=== PATIENT | male | born 1970 | race Caucasian/White ===

== ENCOUNTER 2018-06-03 14:55 | Outpatient (CLI) | payer OTHER ==
--- NOTE | 2018-06-03 17:47 | MRI ---
MRI OF LUMBAR SPINE NONCONTRAST: 06/03/18 CLINICAL INDICATION: Low back pain. Reference made to 04/29/18 lumbar spine radiograph series. FINDINGS: There is diffuse low T1 marrow signal throughout the imaged low thoracic, lumbar and sacral spine, no nspecific. There is no acute compression fracture or subluxation. The conus medullaris is normal in m orphology, terminating at the L1 level. There is multilevel mild bilateral degenerative facet hypertr ophy. There are mild posterior disc bulges at each lumbar spine level which produce mild effacement of the ventral thecal sac, although no high grade central or significant neural foraminal stenosis. Disc spa ce heights are relatively well preserved within the lumbar spine. 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 Mild multilevel degenerative facet hypertrophy. There is diffuse production of T1 marrow signal throughout the imaged osseous structures which is a n onspecific finding. This could reflect benign red marrow reconversion, although the possibility of a marrow proliferative process cannot be exclude. Correlate with clinical assessment and laboratory ciara ues. As necessary, imaging followup may also be obtained. POS: PHANI
== END 2018-06-03 14:56 | disposition home or self-care (01) ==
LOC: SCSMRI 14:55
PROVIDERS: ATTEND Family Medicine
DX: M51.16 Intervertebral disc disorders with radiculopathy, lumbar region (principal); R93.7 Abnormal findings on diagnostic imaging of other parts of musculoskeletal system
CPT/HCPCS: 72148

== ENCOUNTER 2025-04-05 11:17 | Outpatient (CLI) | payer OTHER ==
[2025-04-05 13:28] LABS: #Basophils Less than 0.03 10x3/uL (0.0-0.2); #Eosinophils 0.08 10x3/uL (0.0-0.7); #Monocytes 0.72 10x3/uL (0.11-0.59); #Neutrophils 3.77 10x3/uL (1.40-6.50); %Basophils 0.3 % (0.0-1.0); %Eosinophils 1.2 % (0.0-10.0); %Lymphocytes 31.1 % (21.0-51.0); %Monocytes 10.7 % (0.0-10.0); %Neutrophils 55.7 % (42.0-75.0); Hematocrit 49.2 % (42.0-52.0); Hemoglobin 16.1 g/dL (14.0-18.0); Mean Corpuscular Hemoglobin 32.4 pg (27.0-31.0); Mean Corpuscular Volume 99.0 fL (78.0-98.0); Platelet Count 145 10x3/uL (130-400); Red Blood Cell (RBC) Count 4.97 mill/uL (4.70-6.10); White Blood Cell (WBC) Count 6.76 10x3/uL (4.8-10.8)
[2025-04-05 13:47] LABS: INR-International Normal Ratio 1.0; Prothrombin Time 13.1 sec (12.0-14.7)
[2025-04-05 13:49] LABS: Anion Gap 12 mmol/L (10-20); BUN (Urea Nitrogen) 15 mg/dL (8.4-25.7); Calc. Creatinine Clearance 0 mL/min (70-130); Calcium 9.4 mg/dL (7.8-10.44); Carbon Dioxide 28 mmol/L (22-29); Chloride 102 mmol/L (98-107); Glucose 83 mg/dL (70-105); Potassium 3.8 mmol/L (3.5-5.1); Sodium 138 mmol/L (136-145)
[2025-04-05 15:29] LABS: Bacteria/HPF None Seen HPF (None Seen); Glucose, Urine (Dipstick) Normal (Negative); Leukocyte Negative Leu/uL (Negative); Protein, Urine (Dipstick) Negative (Neg-Trace); RBC/HPF 0-3 HPF (0-3); Specific Gravity, Urine 1.011 (1.002-1.036); WBC/HPF None Seen HPF (0-3)
== END 2025-04-05 11:18 | disposition home or self-care (01) ==
LOC: LABBT 11:17
PROVIDERS: ATTEND Orthopaedic Surgery
DX: Z01.818 Encounter for other preprocedural examination (principal); M87.852 Other osteonecrosis, left femur; M87.862 Other osteonecrosis, left tibia
CPT/HCPCS: 71046; 80048; 81001; 85025; 85610; 87081; 93005; 93010

== ENCOUNTER 2025-04-05 12:17 | Outpatient (CLI) | payer OTHER | END 2025-04-05 12:18 | disposition home or self-care (01) | LOC: CT 12:17 | PROVIDERS: ATTEND Orthopaedic Surgery | DX: M87.852 Other osteonecrosis, left femur (principal); M87.862 Other osteonecrosis, left tibia; Z01.818 Encounter for other preprocedural examination | CPT/HCPCS: 71046; 80048; 81001; 85025; 85610; 87081; 93005; 93010 ==

== ENCOUNTER 2025-04-17 05:25 | Observation (INO) | payer OTHER ==
[2025-04-14 11:46] VITALS: BMI 28.0
[2025-04-17] MEDS ORDERED: Vancomycin HCl 1.5 GM VIAL ONE (05:59)
[2025-04-17] MEDS ORDERED: Tranexamic Acid 1,000 MG/10 ML VIAL ONE ×2 (05:59→08:51)
[2025-04-17] MEDS ORDERED: Ropivacaine 0.5% HCl/PF (150 MG/30 ML VIAL) ONE (06:36)
[2025-04-17] MEDS ORDERED: CEFAZOLIN 2 GM VIAL ONE (06:57)
[2025-04-17] MEDS ORDERED: PROPOFOL 20 ML ONE (07:00)
[2025-04-17] MEDS ORDERED: Lidocaine 1% PF 5 ML VIAL ONE (07:00)
[2025-04-17] MEDS ORDERED: PHENYLEPHRINE-NS 100 MCG/ML 10 ML SYRINGE ONE (07:22)
[2025-04-17] MEDS ORDERED: Ondansetron PF 4 MG/2 ML Vial IVP PRN ×2 (07:30→08:41)
[2025-04-17] MEDS ORDERED: Ropivacaine 0.2% 550 ML 550 ML NERVE BLCK SCH (07:30)
[2025-04-17] MEDS ORDERED: fentaNYL PF 100 MCG/2 ML SYRINGE ONE ×4 (07:41→09:28)
[2025-04-17] MEDS ORDERED: Ketorolac Tromethamine 30 MG (1 mL) VIAL ONE (08:36)
[2025-04-17] MEDS ORDERED: Ondansetron PF 4 MG/2 ML Vial ONE (08:38)
[2025-04-17] MEDS ORDERED: diphenhydrAMINE 25 MG CAP PO PRN (08:41)
[2025-04-17] MEDS ORDERED: Acetaminophen 325 MG TAB PO PRN (08:41)
[2025-04-17] MEDS ORDERED: HYDROmorphone 2 MG/ML VIAL ONE (09:12)
[2025-04-17] MEDS ORDERED: HYDROmorphone 0.5 MG/0.5 ML SYRINGE ONE (09:51)
[2025-04-17] MEDS ORDERED: HYDROmorphone 0.5 MG/0.5 ML SYR SLOW IVP PRN (10:15)
[2025-04-17] MEDS: HYDROcodone/Acetaminophen 10/325 mg Tablet PO SCH (11:19)
[2025-04-17] MEDS: HYDROcodone/Acetaminophen 10/325 mg Tablet PO PRN (11:20)
[2025-04-17] MEDS: Aspirin 81 mg Enteric Coated Tablet PO SCH (12:41)
[2025-04-17] MEDS: Ketorolac Tromethamine 30 MG (1 mL) VIAL IVP SCH (12:43)
[2025-04-17 16:17] VITALS: BMI 28.0
[2025-04-17] MEDS: VANCOMYCIN 2 GRAM/400 ML BAG 2 GM in Premix 1 BAG IVPB SCH (18:25)
[2025-04-17] MEDS: Rosuvastatin 20 MG TAB PO SCH (20:06)
[2025-04-18 07:00] LABS: Hematocrit 39.5 % (42.0-52.0); Hemoglobin 13.0 g/dL (14.0-18.0); Mean Corpuscular Hemoglobin 32.5 pg (27.0-31.0); Mean Corpuscular Volume 98.8 fL (78.0-98.0); Platelet Count 138 10x3/uL (130-400); Red Blood Cell (RBC) Count 4.00 mill/uL (4.70-6.10); White Blood Cell (WBC) Count 11.03 10x3/uL (4.8-10.8)
[2025-04-18 07:26] VITALS: BP 125/77; TEMP 97.7
[2025-04-18] MEDS: Ferrous Gluconate 324 MG TAB PO SCH (08:06)
[2025-04-18] MEDS: Senokot S 8.6-50 MG TAB PO SCH (08:06)
[2025-04-18] MEDS: Multivitamin W/ Minerals 1 TAB PO SCH (08:07)
[2025-04-18] MEDS: Lisinopril 10 MG TAB PO SCH (08:07)
[2025-04-18] MEDS: Calcium Carbonate 500 MG ChewTAB PO SCH (08:55)
[2025-04-18] MEDS: Famotidine/PF 20 mg/2ml Vial SLOW IVP SCH (08:55)
== END 2025-04-18 10:50 | disposition home or self-care (01) ==
LOC: SDC 05:25 → SURG B 10:43 → SDC 14:54
PROVIDERS: ADMIT Orthopaedic Surgery; ATTEND Orthopaedic Surgery
PROC: 0SRD0JZ Replacement of Left Knee Joint with Synthetic Substitute, Open Approach (ICD-10-PCS; principal; 2025-04-17)
PROC: 3E0T3BZ Introduction of Anesthetic Agent into Peripheral Nerves and Plexi, Percutaneous Approach (ICD-10-PCS; 2025-04-17)
DX: M87.19 Osteonecrosis due to drugs, multiple sites (principal); T38.0X5A Adverse effect of glucocorticoids and synthetic analogues, initial encounter; J44.9 Chronic obstructive pulmonary disease, unspecified; F17.200 Nicotine dependence, unspecified, uncomplicated; Z96.643 Presence of artificial hip joint, bilateral; Z98.890 Other specified postprocedural states; Z88.8 Allergy status to other drugs, medicaments and biological substances; Z79.51 Long term (current) use of inhaled steroids
CPT/HCPCS: 0055T; 27447; 64448; 36415; 85027; 94640; A4306; C1713; C1776; C1889; J0665; J1100; J1171; J1308; J1885; J2250; J2405; J2704; J2795; J3010; J3375; J7620

== ENCOUNTER 2025-04-20 13:22 | Inpatient (IN) | payer OTHER ==
[2025-04-20] MEDS ORDERED: Ondansetron PF 4 MG/2 ML Vial ONE (14:06)
[2025-04-20 14:43] LABS: #Basophils 0.03 10x3/uL (0.0-0.2); #Eosinophils 0.09 10x3/uL (0.0-0.7); #Monocytes 1.05 10x3/uL (0.11-0.59); #Neutrophils 5.68 10x3/uL (1.40-6.50); %Basophils 0.3 % (0.0-1.0); %Eosinophils 1.0 % (0.0-10.0); %Lymphocytes 20.3 % (21.0-51.0); %Monocytes 12.0 % (0.0-10.0); %Neutrophils 65.1 % (42.0-75.0); Hematocrit 43.4 % (42.0-52.0); Hemoglobin 14.7 g/dL (14.0-18.0); Mean Corpuscular Hemoglobin 32.5 pg (27.0-31.0); Mean Corpuscular Volume 96.0 fL (78.0-98.0); Platelet Count 169 10x3/uL (130-400); Red Blood Cell (RBC) Count 4.52 mill/uL (4.70-6.10); White Blood Cell (WBC) Count 8.73 10x3/uL (4.8-10.8)
[2025-04-20] MEDS ORDERED: Ketorolac Tromethamine 30 MG (1 mL) VIAL ONE (14:44)
[2025-04-20] MEDS ORDERED: Ketorolac Tromethamine 30 MG (1 mL) VIAL IVP PRN (14:49)
[2025-04-20] MEDS ORDERED: Ondansetron PF 4 MG/2 ML Vial IVP PRN ×2 (14:49→19:27)
[2025-04-20] MEDS ORDERED: Acetaminophen 325 MG TAB PO PRN (14:49)
[2025-04-20] MEDS ORDERED: Melatonin 3 MG TAB PO PRN (14:49)
[2025-04-20] MEDS ORDERED: HYDROcodone/Acetaminophen 10/325 mg Tablet PO PRN (14:54)
[2025-04-20 14:57] LABS: INR-International Normal Ratio 1.1; PTT 34.7 sec (22.9-36.1); Prothrombin Time 14.3 sec (12.0-14.7)
[2025-04-20 14:59] LABS: ALT (SGPT) 27 U/L (Less than 45); AST (SGOT) 27 U/L (11-34); Albumin 3.4 g/dL (3.1-4.5); Alkaline Phosphatase 43 U/L (40-110); Anion Gap 14 mmol/L (10-20); BUN (Urea Nitrogen) 15 mg/dL (8.4-25.7); Bilirubin, Total 0.9 mg/dL (0.3-1.2); Calc. Creatinine Clearance 0 mL/min (70-130); Calcium 10.1 mg/dL (7.8-10.44); Carbon Dioxide 26 mmol/L (22-29); Chloride 100 mmol/L (98-107); Globulin 3.4 g/dL (2.4-3.5); Glucose 80 mg/dL (70-105); Potassium 3.9 mmol/L (3.5-5.1); Sodium 136 mmol/L (136-145)
[2025-04-20] MEDS ORDERED: HYDROmorphone 0.5 MG/0.5 ML SYRINGE ONE (15:44)
[2025-04-20] MEDS: HYDROcodone/Acetaminophen 10/325 mg Tablet PO PRN (17:58)
[2025-04-20] MEDS ORDERED: diphenhydrAMINE 25 MG CAP PO PRN (19:27)
[2025-04-20] MEDS ORDERED: diphenhydrAMINE 50 MG/ML VIAL IM PRN (19:27)
[2025-04-20] MEDS ORDERED: diphenhydrAMINE 50 MG/ML VIAL IVP PRN (19:27)
[2025-04-20] MEDS ORDERED: Communication Order-Pharmacy FS SCH (19:30)
[2025-04-20] MEDS ORDERED: Ropivacaine 0.5% HCl/PF (150 MG/30 ML VIAL) ONE (20:03)
[2025-04-20 20:20] VITALS: BMI 27.3
[2025-04-20] MEDS: HYDROmorphone HCl/0.9% NaCl/PF 30 ML IV SCH (22:45)
[2025-04-20] MEDS: Clindamycin/D5W 900 MG in Premix 1 BAG IVPB SCH (22:47)
[2025-04-21] MEDS: HYDROmorphone 0.5 MG/0.5 ML SYRINGE SLOW IVP SCH (00:33)
[2025-04-21 10:51] LABS: #Basophils Less than 0.03 10x3/uL (0.0-0.2); #Eosinophils 0.16 10x3/uL (0.0-0.7); #Monocytes 0.79 10x3/uL (0.11-0.59); #Neutrophils 5.45 10x3/uL (1.40-6.50); %Basophils 0.3 % (0.0-1.0); %Eosinophils 2.0 % (0.0-10.0); %Lymphocytes 17.7 % (21.0-51.0); %Monocytes 10.0 % (0.0-10.0); %Neutrophils 68.7 % (42.0-75.0); Hematocrit 38.8 % (42.0-52.0); Hemoglobin 12.7 g/dL (14.0-18.0); Mean Corpuscular Hemoglobin 32.4 pg (27.0-31.0); Mean Corpuscular Volume 99.0 fL (78.0-98.0); Platelet Count 155 10x3/uL (130-400); Red Blood Cell (RBC) Count 3.92 mill/uL (4.70-6.10); White Blood Cell (WBC) Count 7.92 10x3/uL (4.8-10.8)
[2025-04-21] MEDS ORDERED: HYDROcodone/Acetaminophen 5/325 mg Tablet PO PRN ×2 (10:55→11:06)
[2025-04-21] MEDS ORDERED: HYDROcodone/Acetaminophen 10/325 mg Tablet PO SCH (11:00)
[2025-04-21] MEDS ORDERED: TEZEPELUMAB EKKO 210 MG/1.91 ML SQ SCH (11:00)
[2025-04-21] MEDS ORDERED: Non-Formulary Item 1 EACH (Sildenafil Citrate [Sildenafil Citrate] 100 MG Tablet) PO SCH (11:00)
[2025-04-21] MEDS ORDERED: Ropivacaine 0.5% HCl/PF (150 MG/30 ML VIAL) ONE (11:01)
[2025-04-21] MEDS ORDERED: [UNRECOGNIZED DRUG - OTHER] SC SCH (11:15)
[2025-04-21] MEDS ORDERED: Non-Formulary Item 1 EACH (Ipratropium/Albuterol Sulfate [Combivent Respimat] 120 PUFF In INH SCH (13:00)
[2025-04-21] MEDS: Aspirin 81 mg Enteric Coated Tablet PO SCH ×2 (14:34→22:15)
[2025-04-21] MEDS: Ketorolac Tromethamine 30 MG (1 mL) VIAL IVP PRN (17:59)
[2025-04-21] MEDS ORDERED: Non-Formulary Item 1 EACH (Tizanidine Hcl [Tizanidine Hcl] 2 MG Capsule) PO SCH (21:00)
[2025-04-21] MEDS ORDERED: Non-Formulary Item 1 EACH (Rosuvastatin Calcium [Rosuvastatin Calcium] 40 MG Tablet) PO SCH (21:00)
[2025-04-21] MEDS ORDERED: Non-Formulary Item 1 EACH (Zolpidem Tartrate [Zolpidem Tartrate] 10 MG Tablet) PO SCH (21:00)
[2025-04-21] MEDS: Rosuvastatin 20 MG TAB PO SCH (22:16)
[2025-04-22 07:43] VITALS: TEMP 97.9
[2025-04-22 10:02] VITALS: BP 126/80
[2025-04-22] MEDS: Lisinopril 10 MG TAB PO SCH (10:03)
== END 2025-04-22 10:45 | disposition home or self-care (01) | DRG 93 ==
LOC: ERS 13:22 → ERHOLD 14:49 → SURG B 17:27 → OBSVTOIN 04-21 16:23
PROVIDERS: ADMIT Orthopaedic Surgery; ATTEND Orthopaedic Surgery
DX: G89.28 Other chronic postprocedural pain (principal); Z96.652 Presence of left artificial knee joint; Z79.82 Long term (current) use of aspirin; Z79.899 Other long term (current) drug therapy
CPT/HCPCS: 36415; 80053; 83605; 84484; 85025; 85610; 85730; 86141; 87040; 94640; 96374; 96375; 96376; G0378; J0166; J1171; J1885; J2250; J2270; J2405; J2795; J3490; J7620